=== PATIENT | male | born 1950 | race Caucasian/White ===

== ENCOUNTER → 2018-09-20 | Outpatient (CLI) | payer MEDICARE, BC ==
[~2018-09-20] MED LIST: DOXY-181 PO; IBUP600T22 PO; PNEU0.5D3 IM
[2018-09-20 10:16] LABS: PLATELET COUNT, AUTOMATED 208 K/uL (150-450)
[2018-09-20 10:36] LABS: LDL CHOLESTEROL 136 mg/dl
== END ==
LOC: LAB 09:30
PROVIDERS: ATTEND Internal Medicine
DX: Z12.5 Encounter for screening for malignant neoplasm of prostate (principal); Z00.00 Encounter for general adult medical examination without abnormal findings; E78.5 Hyperlipidemia, unspecified
CPT/HCPCS: 36415; 81001; 84443; 85025; G0103; 82040; 82247; 82310; 82374; 82435; 82465; 82565; 82947; 83718; 84075; 84132; 84153; 84155; 84295; 84450; 84460; 84478; 84520